=== PATIENT | female | born 1975 | race Caucasian/White ===

== ENCOUNTER 2023-11-10 06:37 | Day surgery (SDC) | payer OTHER ==
[~2023-11-10] VITALS: Ht 152.4 cm; Wt 63.5 kg
[2023-11-10] MEDS ORDERED: SIMETHICONE 40 MG/0.6 ML ML ONE (07:42)
[2023-11-10] MEDS ORDERED: fentaNYL CITRATE/PF 100 MCG/2 ML AMP ONE (07:42)
[2023-11-10] MEDS ORDERED: MIDAZOLAM HCL 5 MG/5 ML VIAL ONE (07:42)
[2023-11-10 08:00] VITALS: O2SAT 97
[2023-11-10 12:17] VITALS: BP_SYST 105; PULSE 69; RESP 11
== END 2023-11-10 09:07 | disposition home or self-care (01) ==
LOC: SDS 06:37 → SMU 06:39 → SDS 09:07
PROVIDERS: ATTEND Internal Medicine
DX: Z12.11 Encounter for screening for malignant neoplasm of colon (principal); K64.8 Other hemorrhoids; G43.909 Migraine, unspecified, not intractable, without status migrainosus; Z90.710 Acquired absence of both cervix and uterus; Z79.899 Other long term (current) drug therapy; Z91.040 Latex allergy status
CPT/HCPCS: 45378; 99152; G0378; J2250; J3010